=== PATIENT | female | born 1995 | race Caucasian/White ===

== ENCOUNTER 2017-09-13 15:08 | Emergency (ER) | payer MEDICAID, OTHER ==
[~2017-09-13] VITALS: Ht 154.9 cm; Wt 55.0 kg
[~2017-09-13 15:08] MED LIST: Z.0.BCPILL PO
[2017-09-13 15:09] VITALS: BP 142/94; PULSE 86; RESP 18; TEMP 98.7; O2SAT 99
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
[2017-09-13 16:20] LABS: BACTERIA, URINE RARE /hpf; BLOOD, URINE NEG (NEG); COMMENT (UR) CULT NOT INDICATED; CULTURE IF INDICATED CULT NOT INDICATED; GLUCOSE,URINE NEG (NEG); KETONE, URINE NEG (NEG); NITRITE,URINE NEG (NEG); SQUAMOUS EPITHELIAL CELL URINE 2 /hpf (0-5); URINE COLOR COLORLESS (YELLW/STRAW)
[2017-09-13 17:08] VITALS: BP 130/81; TEMP 97.8
== END 2017-09-13 17:10 | disposition home or self-care (01) ==
LOC: NEPD 15:08
DX: T76.21XA Adult sexual abuse, suspected, initial encounter (principal); Z79.3 Long term (current) use of hormonal contraceptives
CPT/HCPCS: 81001; 84703; 99284